=== PATIENT | female | born 1960 | race Caucasian/White ===

== ENCOUNTER 2016-08-16 02:58 | Inpatient (IN) | payer BC ==
[2016-08-16] VITALS (7 sets, daily range): BP systolic 104–148; BP diastolic 32–73
[~2016-08-16] VITALS: Ht 152.4 cm; Wt 63.5 kg
--- NOTE | ~2016-08-16 | EEG ---
[facility] [place] [address] ELECTROENCEPHALOGRAM Name: IRWIN ROE Room #: 438-P ADM IN M.R.#: [id number] Admission: 08/16/16 Attend Phys: Lucian Chavez MD Discharge: Date of : 60 Report #: [id number] THIS REPORT FOR: //name// CC: FAM unknown Lucian Chavez DATE OF SERVICE: 08/17/2016 This patient is being evaluated for the possibility of seizure. EEG was done by placing the electrodes by standard 10-20 system of electrode placement. Both referential and sequential montages were used for recording. Background activity in this patient's EEG is about 11 Hz and 40 microvolts. This is a well formed background activity. It is a symmetrical activity. The patient became drowsy and that was associated with bilateral slowing and a few vertex sharp waves. Photic stimulation is unremarkable, throughout the record no active epileptiform activity was noticed. IMPRESSION: This patient's EEG is within normal limits. Thank you very much for this referral. By: [id number] Haider Valencia MD /nt
[2016-08-16 03:16] LABS: ABSOLUTE NEUTROPHILS 9.2 thou/uL (1.4-8.2); BASOPHILS 0.2 % (0.0-2.0); EOSINOPHILS 0.6 % (0.0-3.0); HEMATOCRIT 42.3 % (37.0-47.0); HEMOGLOBIN 14.1 gm/dL (12.0-15.0); LYMPHOCYTES 17.4 % (24.0-44.0); MCH 34.1 pg (26.0-34.0); MCHC 33.3 g/dL (28.0-37.0); MCV 102.2 fL (80.0-100.0); MONOCYTES 5.7 % (1.0-8.0); PLATELET COUNT 250 thou/uL (150-400); POLYS 76.1 % (36.0-66.0); RBC 4.14 mil/uL (4.20-5.00); RDW 13.8 % (10.5-14.5); WBC 12.1 thou/uL (4.0-11.0)
[2016-08-16 03:17] LABS: MANUAL DIFF NO
[2016-08-16 03:18] LABS: CALCIUM 8.2 mg/dL (8.5-10.1); CREATININE 0.9 mg/dL (0.6-1.0); POTASSIUM 3.8 mmol/L (3.5-5.1)
[2016-08-16 03:24] LABS: URINE BILIRUBIN NEGATIVE (Negative); URINE BLOOD TRACE (Negative); URINE COLOR YELLOW; URINE GLUCOSE-RANDOM* NEGATIVE (Negative); URINE KETONES NEGATIVE (Negative); URINE LEUKOCYTES-REFLEX NEGATIVE (Negative); URINE PROTEIN (DIPSTICK) NEGATIVE (Negative); URINE UROBILINOGEN 0.2 E.U./dl (0.2-1.0)
[2016-08-16] MEDS ORDERED: MOBIC15 MG PO (03:25)
[2016-08-16] MEDS ORDERED: INDAPAMIDE2.5 MG PO (03:26)
[2016-08-16] MEDS ORDERED: PAXIL10 MG PO (03:26)
[2016-08-16] MEDS ORDERED: TRAZODONE HCL100 MG PO (03:27)
[2016-08-16] MEDS ORDERED: KLOR-CON 1010 MEQ PO (03:28)
[2016-08-16] MEDS ORDERED: LEVOTHYROXIN0.125 M1 PO (03:28)
[2016-08-16 03:33] LABS: AMP/METHAMP Negative (Negative); BARBITURATES Negative (Negative); BENZODIAZEPINES POSITIVE (Negative); COCAINE Negative (Negative); METHADONE Negative (Negative); OPIATES Negative (Negative); PCP Negative (Negative); THC POSITIVE (Negative)
[2016-08-16] MEDS ORDERED: XANAX1 MG PO (04:30)
[2016-08-16] MEDS ORDERED: TESSALON PERLE100 MG PO (04:30)
[2016-08-17 03:36] LABS: HEMATOCRIT 35.9 % (37.0-47.0); HEMOGLOBIN 12.2 gm/dL (12.0-15.0); MCH 34.6 pg (26.0-34.0); MCV 101.8 fL (80.0-100.0); RBC 3.53 mil/uL (4.20-5.00); WBC 6.5 thou/uL (4.0-11.0)
[2016-08-17 03:56] LABS: CALCIUM 8.1 mg/dL (8.5-10.1); CREATININE 0.9 mg/dL (0.6-1.0)
[2016-08-17 04:00] VITALS: BP 112/60
[2016-08-17 07:31] VITALS: BP 100/51
[2016-08-17 15:36] VITALS: BP 133/79
[2016-08-17 19:26] VITALS: BP 133/92
[2016-08-18 06:46] VITALS: BP 90/55
[2016-08-18 08:00] VITALS: BP 80/32
[2016-08-18] MEDS ORDERED: KEPPRA 500 MG500 M1 PO (12:35)
[2016-08-18 12:49] VITALS: BP 80/32
== END 2016-08-18 13:42 | disposition home or self-care (01) | DRG 101 ==
LOC: ER 02:58 → 4S 05:45
PROVIDERS: Emergency Medicine; Hospitalist
DX: G40.909 Epilepsy, unspecified, not intractable, without status epilepticus (principal); F41.9 Anxiety disorder, unspecified; I10 Essential (primary) hypertension; E03.9 Hypothyroidism, unspecified; R51 Headache; F12.90 Cannabis use, unspecified, uncomplicated; M25.579 Pain in unspecified ankle and joints of unspecified foot; M19.90 Unspecified osteoarthritis, unspecified site; F17.210 Nicotine dependence, cigarettes, uncomplicated; Z79.899 Other long term (current) drug therapy; Z82.0 Family history of epilepsy and other diseases of the nervous system
CPT/HCPCS: 10100